=== PATIENT | male | born 1980 | race American Indian/Alaskan Native ===

== ENCOUNTER 2021-10-20 17:34 | Emergency (ER) | payer OTHER ==
[2021-10-20] MEDS ORDERED: ACETAMINOPHEN 325 MG TAB PO ONE (18:23)
[2021-10-20] MEDS ORDERED: FAMOTIDINE 20 MG/2 ML INJ IV ONE (18:23)
[2021-10-20] MEDS ORDERED: SODIUM CHLORIDE 0.9% 500 ML 500 ML IV ONE (18:23)
--- NOTE | 2021-10-20 18:25 | Emergency Department Report ---
<CINTHYA CLEMENT - Last Filed: 10/20/21 22:23> ED General Adult HPI - General Chief complaint: Chest Pain Stated complaint: CHEST PAINS Time Seen by Provider: 10/20/21 18:10 - Related Data Previous Rx's Medication Instructions Recorded Last Taken Type Ibuprofen [Motrin 600 MG tab] 600 mg PO Q8H PRN #20 tablet 10/20/21 Unknown Rx Allergies Allergy/AdvReac Type Severity Reaction Status Date / Time No Known Allergies Allergy Unverified 10/20/21 17:45 ED Past Medical Hx - Medications Home Medications: Home Medications Medication Instructions Recorded Confirmed Last Taken Type Ibuprofen [Motrin 600 MG tab] 600 mg PO Q8H PRN #20 tablet 10/20/21 Unknown Rx ED Course - Reevaluation(s) Reevaluation #2: 10/20/21 22:[address] Lama. 41-year-old male who presented for pleuritic chest pain. EKG and labs normal. D-dimer negative. CTA pending CTA of the chest shows no evidence of pulmonary embolism and no acute abnormalities. I reassessed the patient at 10:20 PM and he is resting comfortably in the bed. He reports that he feels slightly better and no worse. I discussed the results of the scan and the likely diagnosis of pleurisy. I recommend that he follow-up with a primary care doctor within the next few days. He expressed understanding and agreement with this plan of care. ED Medical Decision Making - Lab Data Result diagrams: 10/20/21 18:31 10/20/21 18:31 ED Disposition Clinical Impression: Pleurisy, Hypokalemia, Acute chest pain Disposition: 01 HOME / SELF CARE / HOMELESS Is pt being admited?: No Condition: Stable Instructions: Pleurisy, Chest Pain (ED) Additional Instructions: Return to the emergency department for any significantly worsening symptoms or new health concerns. Follow-up with a primary care doctor within the next several days. For pain, I recommend taking 600 mg of ibuprofen up to 3 times daily as needed for pain. Do not take on an empty stomach. Consider testing for COVID-19. Prescriptions: Ibuprofen [Motrin 600 MG tab] 600 mg PO Q8H PRN #20 tablet PRN Reason: Pain Referrals: [facility] [Provider Group] - 3-5 Days <CAROLINE LAMA - Last Filed: 10/21/21 19:45> ED General Adult HPI - General PUI?: No Source: patient, RN notes reviewed Mode of arrival: Ambulatory Limitations: No Limitations - History of Present Illness Initial comments: The patient was evaluated in the emergency department for symptoms described in the history of present illness. He/she was evaluated in the context of the global COVID-19 pandemic, which necessitated consideration that the patient might be at risk for infection with the virus that causes COVID-19. Institutional protocols and algorithms that pertain to the evaluation of patients at risk for COVID-19 are in a state of rapid change based on information released by regulatory bodies including the CDC and federal and state organizations. These policies and algorithms were followed during the patient's care in the emergency department. Please note that these policies, procedures and recommendations changed on a rapid basis. Primary CARE doctor: Mccord sivan This is a 41-year-old gentleman. He is not known to myself previously. He works as a truck driver flatbed. He typically gets around 1000 to 1500 miles per month. He also reports that he recently drove from [place] to [place] continuously. He presents to the ER today with a complaint of right-sided chest pain which increases with deep inspiration. This has been going on for a few days. He denies vomiting, diaphoresis, abdominal pain, urinary symptoms, cough, loss of taste and smell, hematemesis and bright red blood per rectum. He has no personal family history of DVT/PE that he is aware of. -: Gradual, days(s) Location: chest (Right sided) Radiation: non-radiation Severity scale (0 -10): 4 Quality: aching Consistency: intermittent Improves with: rest Worsens with: other (Deep inspiration deep inspiration) ED Review of Systems ROS: Stated complaint: CHEST PAINS Other details as noted in HPI Constitutional: denies: fever Eyes: denies: vision change ENT: denies: epistaxis Respiratory: denies: wheezing Cardiovascular: chest pain Gastrointestinal: denies: abdominal pain, nausea, vomiting, hematemesis, melena, hematochezia Genitourinary: denies: dysuria Musculoskeletal: denies: myalgia Neurological: denies: weakness Hematological/Lymphatic: denies: easy bleeding ED Physical Exam - General Limitations: No Limitations General appearance: alert, in no apparent distress - Head Head exam: Present: atraumatic, normocephalic - Eye Eye exam: Present: normal appearance, EOMI. Absent: nystagmus - ENT ENT exam: Present: normal exam, normal orophraynx, mucous membranes moist, normal external ear exam - Neck Neck exam: Present: normal inspection, full ROM. Absent: tenderness, meningismus - Respiratory Respiratory exam: Present: normal lung sounds bilaterally. Absent: respiratory distress, wheezes, rales, rhonchi, stridor, decreased breath sounds - Cardiovascular Cardiovascular Exam: Present: regular rate, normal rhythm, normal heart sounds. Absent: bradycardia, tachycardia, irregular rhythm, systolic murmur, diastolic murmur, rubs, gallop - GI/Abdominal GI/Abdominal exam: Present: soft. Absent: distended, tenderness, guarding, rebound, rigid, pulsatile mass - Rectal Rectal exam: Present: deferred - Extremities Exam Extremities exam: Present: normal inspection, full ROM, other (2+ pulses noted in the bilateral upper and lower extremities. There is no palpable cord. negative Homans sign. Muscular compartments are soft. The pelvis is stable.). Absent: pedal edema, calf tenderness - Back Exam Back exam: Present: normal inspection, full ROM. Absent: tenderness, CVA tenderness (R), CVA tenderness (L), paraspinal tenderness, vertebral tenderness - Neurological Exam Neurological exam: Present: alert, oriented X3, normal gait, other (No facial droop. Tongue midline. Extraocular movements intact bilaterally. Facial sensation intact to light touch in V1, V2, V3 distribution bilaterally. 5 and a 5 strength in 4 extremities. Sensation intact to light touch in 4 extremities.). Absent: motor sensory deficit - Psychiatric Psychiatric exam: Present: normal affect, normal mood - Skin Skin exam: Present: warm, dry, intact, normal color. Absent: rash ED Course Vital Signs 10/20/21 10/20/21 17:47 22:44 Temperature 98.1 F Pulse Rate 95 H 66 Respiratory 18 16 Rate Blood Pressure 181/102 151/100 [Right] O2 Sat by Pulse 99 98 Oximetry - Reevaluation(s) Reevaluation #1: 10/20/21 19:15 Differential diagnosis, including not limited to: Pleurisy, pneumothorax, pericardial effusion, pneumonia, pulmonary embolism Assessment and plan: 41-year-old gentleman, who reports multiple trips in the past few weeks, including driving for a job, and recent road trip to [facility], presenting with right-sided pleuritic chest pain. EKG shows left axis deviation with left anterior fascicular block without prior for comparison. Patient is not low pretest probability for pulmonary embolism given the aforementioned, and therefore, D-dimer not adequate to risk stratify this patient. We will therefore obtain CT scan of the chest to evaluate for pulmonary embolism. Laboratory studies and pain medication will be ordered. Presuming negative troponin x1, acute myocardial infarction is ruled out as per the [employer] clinical policy, given that chest pain is present for a few days. Furthermore, this patient is low risk for major adverse cardiac event as per heart score. Has equal pulses in the upper and lower extremities, no pulsatile abdominal mass, therefore, aortic disease is unlikely. 10/20/21 19:51 Care will be transferred to the oncoming ER physician to follow-up on laboratory studies and CAT scan of the chest. Disposition as per CAT scan of the chest and laboratory studies. Should the studies be unremarkable, the patient will be suitable to follow-up with his outpatient primary care physician or cardiolo gist. Patient currently on his cell phone, not in any acute distress. Outpatient follow-up for elevated blood pressure ED Medical Decision Making - Lab Data Result diagrams: 10/20/21 18:31 10/20/21 18:31 Vital Signs 10/20/21 17:47 Temperature 98.1 F Pulse Rate 95 H Respiratory 18 Rate Blood Pressure 181/102 [Right] O2 Sat by Pulse 99 Oximetry - EKG Data -: EKG Interpreted by Ms EKG shows normal: sinus rhythm Rate: normal - EKG Data When compared to previous EKG there are: previous EKG unavailable 10/20/21 19:14 The EKG is interpreted at 17: 56 Sinus rhythm, 79 bpm. Left axis deviation. Left anterior fascicular block. Normal P wave axis. QTC 4 3 7 ms. Not a STEMI. - Radiology Data Radiology results: pending Critical care attestation.: If time is entered above; I have spent that time in minutes in the direct care of this critically ill patient, excluding procedure time. ED Disposition Is pt being admited?: No Does the pt Need Aspirin: No Heart Score - HEART Score History: Slightly suspicious EKG: Non-specific Age: < 45 Risk factors: 1-2 risk factors Troponin: < normal limit HEART Score: 2 - EKG Read Time Time EKG Completed: 17:56 EKG Read Time: 17:56 - Critical Actions Critical Actions: 0-3 pts:0.9-1.7%risk of adverse cardiac event.Candidate for discharge
[2021-10-20 18:56] LABS: Hemoglobin 13.3 gm/dl (11.8-15.2); Mean Corpuscular HGB Conc 32 % (32-34); Mean Corpuscular Volume 82 fl (84-94); Platelet Count 229 K/mm3 (140-440); Red Blood Count 5.15 M/mm3 (3.65-5.03); Red Cell Distribution Width 14.5 % (13.2-15.2)
[2021-10-20 19:01] LABS: INR 0.88 (0.87-1.13)
[2021-10-20 19:59] LABS: Alanine Aminotransferase 28 units/L (7-56); Albumin 4.2 g/dL (3.9-5); BUN/Creatinine Ratio 13; Blood Urea Nitrogen 12 mg/dL (9-20); Calcium 9.4 mg/dL (8.4-10.2); Hemolysis Index 12
--- NOTE | 2021-10-20 21:20 | Cat Scan Report ---
CT angio chest INDICATION / CLINICAL INFORMATION: acute pleuritic chest pain. TECHNIQUE: Axial CT images were obtained through the chest after injection of IV contrast. 3 plane MIP and/or 3D reconstructions were produced. All CT scans at this location are performed using CT dose reduction f or ALARA by means of automated exposure control. COMPARISON: None available. FINDINGS: PULMONARY ARTERIES: No pulmonary emboli. HEART: No significant abnormality. MEDIASTINUM / DEUCE: No significant abnormality. LUNGS: Lungs are clear No pleural effusion. No pneumothorax. ADDITIONAL FINDINGS: None. UPPER ABDOMEN: No acute findings. SKELETAL STRUCTURES: No significant osseous abnormality. IMPRESSION: 1. No CT evidence for pulmonary embolism. 2. No acute findings. Signer Name: Titi Michael MD Signed: 10/20/2021 9:15 PM Workstation Name: [id number]
[2021-10-20 22:45] VITALS: BP 151/100
--- NOTE | 2021-10-22 14:26 | Electrocardiograph Report ---
[facility] Test Date: 2021-10-20 Test Time: 17:56:41 Pat Name: REBECCA ADAN Department: Room: Gender: M Nnps: KAYLAH : 1980 Requested By: CAROLINE LAMA Order Number: [id number] Reading MD: Anselmo Rabago Measurements Intervals [place] Rate: 79 P: 44 IL: 167 QRS: -2 QRSD: 94 T: 15 QT: 382 QTc: 437 Interpretive Statements Sinus rhythm No previous ECG available for comparison Electronically Signed On 10-22-2021 14:25:52 EST by Anselmo Rabago
== END 2021-10-20 22:40 | disposition home or self-care (01) ==
LOC: ED 17:34
DX: E87.6 Hypokalemia (principal); R07.89 Other chest pain; Z79.899 Other long term (current) drug therapy
CPT/HCPCS: 36415; 71275; 80053; 82550; 83735; 84484; 85027; 85379; 85610; 93005; 93010; 96361; 96374; 99284; J3490; J7040; Q9967

== ENCOUNTER 2021-11-24 04:31 | Emergency (ER) | payer OTHER ==
[2021-11-24] MEDS ORDERED: SODIUM CHLORIDE 0.9% 1000 ML 1,000 ML IV ONE (07:26)
--- NOTE | 2021-11-24 07:35 | Emergency Department Report ---
ED General Adult HPI - General Chief complaint: Eye Problems Stated complaint: CHEMICAL EXPOSURE TO LT EYE Time Seen by Provider: 11/24/21 06:24 Source: patient Mode of arrival: Ambulatory Limitations: No Limitations - History of Present Illness Initial comments: 41-year-old -[place] male patient presents with complaints of bleach exposure to the left today. He states the container fell out of a cabinet and splash into his eyes. He denies contact lens wearing and states he does have some blurry vision. He states the pain is mild and rates it as a 2/10 in severity. No past medical history or known drug allergies per patient. - Related Data Previous Rx's Medication Instructions Recorded Last Taken Type Ibuprofen [Motrin 600 MG tab] 600 mg PO Q8H PRN #20 tablet 10/20/21 Unknown Rx Erythromycin [Erythromycin Ophth 1 cm OU Q3H 7 Days #1 tube 11/24/21 Unknown Rx Oint] Allergies Allergy/AdvReac Type Severity Reaction Status Date / Time No Known Allergies Allergy Unverified 10/20/21 17:45 ED Review of Systems ROS: Stated complaint: CHEMICAL EXPOSURE TO LT EYE Other details as noted in HPI Eyes: eye pain. denies: eye discharge Skin: denies: change in color ED Past Medical Hx - Medications Home Medications: Home Medications Medication Instructions Recorded Confirmed Last Taken Type Ibuprofen [Motrin 600 MG tab] 600 mg PO Q8H PRN #20 tablet 10/20/21 Unknown Rx Erythromycin [Erythromycin Ophth 1 cm OU Q3H 7 Days #1 tube 11/24/21 Unknown Rx Oint] ED Physical Exam - General Limitations: No Limitations General appearance: alert, in no apparent distress - Head Head exam: Present: atraumatic, normocephalic - Eye Eye exam: Present: conjunctival injection (Left). Absent: scleral icterus, periorbital swelling, periorbital tenderness, other (No obvious foreign body) Pupils: Absent: other (No abrasion noted on fluorescein stain) - Respiratory Respiratory exam: Absent: respiratory distress - Cardiovascular Cardiovascular Exam: Present: regular rate - Neurological Exam Neurological exam: Present: alert, oriented X3 - Psychiatric Psychiatric exam: Present: normal affect, normal mood - Skin Skin exam: Present: warm, dry, intact, normal color. Absent: rash ED Course Vital Signs 11/24/21 11/24/21 11/24/21 04:55 07:41 07:46 Temperature 98.0 F Pulse Rate 82 Respiratory 18 Rate Blood Pressure 132/81 Blood Pressure [Left] O2 Sat by Pulse 97 100 99 Oximetry 11/24/21 11/24/21 11/24/21 07:47 07:53 07:56 Temperature 98.2 F 97.4 F L Pulse Rate 63 79 Respiratory 18 18 Rate Blood Pressure 118/77 Blood Pressure 134/89 [Left] O2 Sat by Pulse 100 100 100 Oximetry 11/24/21 11/24/21 11/24/21 08:00 08:16 08:30 Temperature Pulse Rate Respiratory Rate Blood Pressure 118/77 118/77 118/77 Blood Pressure [Left] O2 Sat by Pulse 100 99 99 Oximetry 11/24/21 11/24/21 11/24/21 08:46 09:00 09:16 Temperature Pulse Rate Respiratory Rate Blood Pressure 135/106 136/83 118/72 Blood Pressure [Left] O2 Sat by Pulse 99 100 100 Oximetry 11/24/21 11/24/21 11/24/21 09:30 09:46 10:00 Temperature Pulse Rate Respiratory Rate Blood Pressure 133/73 135/78 122/83 Blood Pressure [Left] O2 Sat by Pulse 98 99 100 Oximetry 11/24/21 11/24/21 11/24/21 10:16 10:30 10:46 Temperature Pulse Rate Respiratory Rate Blood Pressure 139/94 131/94 131/84 Blood Pressure [Left] O2 Sat by Pulse 99 100 100 Oximetry 11/24/21 11/24/21 11:00 11:25 Temperature Pulse Rate Respiratory Rate Blood Pressure 152/102 Blood Pressure [Left] O2 Sat by Pulse 99 100 Oximetry ED Medical Decision Making - Medical Decision Making 41-year-old -[place] male patient presents with complaints of bleach exposure to the left today. He states the container fell out of a cabinet and splash into his eyes. He denies contact lens wearing and states he does have some blurry vision. He states the pain is mild and rates it as a 2/10 in severity. No past medical history or known drug allergies per patient. Initial pH of eye was noted to be 9. After 1 L of saline and 1 L of lactated Ringer's flush via Raul's lens in the left eye, pH is now 7. Patient continues to deny any pain. Vision is noted to be 20/30 in left eye and 20/25 in the right eye. Will cover patient with erythromycin. Recommend follow-up with ophthalmology, referral provided. Patient informed to have his BP rechecked with his primary care doctor within 3 to 5 days. Discussed in great detail signs symptoms that should prompt immediate return to ED with patient verbalized understanding. Critical care attestation.: If time is entered above; I have spent that time in minutes in the direct care of this critically ill patient, excluding procedure time. ED Disposition Clinical Impression: Chemical exposure of eye Disposition: 01 HOME / SELF CARE / HOMELESS Is pt being admited?: No Condition: Stable Prescriptions: Erythromycin [Erythromycin Ophth Oint] 1 cm OU Q3H 7 Days #1 tube Referrals: MARILYN YOU MD [Staff Physician] - 3-5 Days Forms: Work/School Release Form(ED)
[2021-11-24] MEDS ORDERED: TETRACAINE 0.5% OPHTH SOLN 4ML ONE (09:18)
[2021-11-24 11:25] VITALS: BP 152/102
[2021-11-24] MEDS ORDERED: LACTATED RINGERS 1,000 ML IV ONE (11:29)
== END 2021-11-24 14:30 | disposition home or self-care (01) ==
LOC: ED 04:31
DX: Z77.098 Contact with and (suspected) exposure to other hazardous, chiefly nonmedicinal, chemicals (principal)
CPT/HCPCS: 96360; 96361; 99284; J7030; J7120; 99283; Q0162